=== PATIENT | female | born 1930 | race Caucasian/White ===

== ENCOUNTER 2017-04-27 17:02 | Inpatient (IN) | payer MEDICARE, BC ==
[~2017-04-27] VITALS: Ht 167.6 cm; Wt 68.4 kg
--- NOTE | ~2017-04-27 | HP ---
PATIENT: PAL CHURCH MEDICAL RECORD: [id number] ACCOUNT: [id number] LOCATION:[address] : [birth year] ADMISSION DATE: 04/27/17 HISTORY AND PHYSICAL EXAMINATION HISTORY OF PRESENT ILLNESS: The patient is a pleasant an 86-year-old white female who comes in complaining of lesions on her tongue. She noticed some looking in the mirror. They are asymptomatic. On exam, she has got multiple petechiae. She has also got some petechiae on her arms. She was seen about a week ago for suspected viral gastroenteritis. She does take an aspirin a day. CBC and INR are checked today. Her platelet count was 0. INR was okay. Leukocytes and H&H were in a normal range. The patient is admitted for severe thrombocytopenia and platelet transfusion, discussed with Dr. Bradshaw. PAST MEDICAL HISTORY: The patient has a history of atrial fibrillation, currently in sinus; hyperlipidemia; and vitamin D deficiency. 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 ALLERGIES OR INTOLERANCES: Include CEFTIN and PENICILLIN. HOME MEDICATIONS: Include pravastatin 10 mg a day, vitamin D 2000 international units a day, and 81 mg aspirin daily. FAMILY HISTORY: Significant for cancer, not specified. SOCIAL HISTORY: The patient is . She has one daughter that lives out of state. She has never smoked or drank. She recently retired working at a local [employer]. REVIEW OF SYSTEMS: She denies any fever. She denies any weight loss. No more nausea, vomiting. No chest pain or shortness of breath. No fatigue. No changes in weight. PHYSICAL EXAMINATION: HEENT: Head is normocephalic. Sclerae nonicteric. Mucous membranes are moist. There are some petechiae on the mouth and lips. HEART: Regular. LUNGS: Clear. ABDOMEN: Soft. Liver and spleen are nonpalpable. EXTREMITIES: Without edema. She has got some petechiae on her arms. IMPRESSION: 1. Severe thrombocytopenia. 2. Hyperlipidemia. 3. Aspirin therapy. PLAN: Admit, transfuse platelets. Consult Dr. Bradshaw. Start IV Solu-Medrol. Check labs. Bleeding precautions. See orders for plan. TRANSINT:[id number] Voice Confirmation ID: [id number] DOCUMENT ID: [id number] HISTORY AND PHYSICAL [id number] PAL CHURCH, EMILY SLATER at 0939 CC: [id number] DICTATION DATE: 04/27/17 1406 PROJECT CONTROL OFFICER: 04/27/17 1423 ADM IN [place] [id number] [place] [id number]
[2017-04-27 18:10] LABS: BASOPHILS 0.6 % (0-2); EOSINOPHILS 1.8 % (0-7); HEMATOCRIT 37.5 % (36.0-48.0); HEMOGLOBIN 12.5 g/dL (12-16); IMMATURE GRANULOCYTES 0.6 % (0-5); LYMPHOCYTES 16.1 % (15-50); MCH 31.3 pg (26.0-34.0); MCHC 33.3 g/dL (31.0-37.0); MONOCYTES 5.9 % (2-11); RBC 3.99 10x6/uL (4.00-5.40); RDW 12.6 % (11.5-14.5); WBC 5.4 10x3/uL (4.8-10.8)
[2017-04-27 18:28] LABS: APTT 28.4 SECONDS (22.8-39.4); INR 0.99 (0.85-1.17); PROTIME 12.7 SECONDS (11.6-15.0)
[2017-04-27 18:34] LABS: ANION GAP 12.6 mmol/L (8-16); BILIRUBIN - TOTAL 0.46 mg/dL (0.2-1.3); CALCIUM 9.2 mg/dL (8.5-10.1); CARBON DIOXIDE 28.8 mmol/L (21.0-32.0); CREATININE - SERUM 1.3 mg/dL (0.6-1.3); POTASSIUM - SERUM 4.4 mmol/L (3.5-5.1); PROTEIN - SERUM 7.5 g/dL (6.4-8.2)
[2017-04-27] MEDS ORDERED: BAYER CHEWABLE81 MG PO (18:35)
[2017-04-27] MEDS ORDERED: VITAMIN D31000 UNI2 PO (18:37)
[2017-04-27 19:10] LABS: PLATELET COUNT 3 10x3/uL (130-400)
[2017-04-27 19:12] LABS: PLATELET ESTIMATE DECREASED
[2017-04-27 19:17] LABS: ERYTHROCYTE SEDIMENTATION RATE 35 mm/hr (0-42)
[2017-04-27 19:21] VITALS: BP 155/57; BMI 23.3
[2017-04-27 21:11] VITALS: BP 179/67
[2017-04-28 04:27] VITALS: BP 151/59
[2017-04-28 08:36] VITALS: BP 137/65
[2017-04-28 09:10] LABS: BASOPHILS 0 % (0-2); EOSINOPHILS 0 % (0-7); HEMATOCRIT 35.7 % (36.0-48.0); HEMOGLOBIN 11.9 g/dL (12-16); MCH 31.2 pg (26.0-34.0); MCHC 33.3 g/dL (31.0-37.0); MCV 93.7 fL (80.0-100.0); MEAN PLATELET VOLUME 11.3 fL (7.4-10.4); MONOCYTES 0.1 % (2-11); NEUTROPHILS 93.9 % (40-80); RBC 3.81 10x6/uL (4.00-5.40); RDW 12.6 % (11.5-14.5)
[2017-04-28 09:14] LABS: PLATELET COUNT 81 10x3/uL (130-400); WBC 7.6 10x3/uL (4.8-10.8)
[2017-04-28 10:17] VITALS: BMI 23.1
[2017-04-28 12:48] VITALS: Ht 167.6 cm; Wt 68.4 kg
[2017-04-28 12:52] VITALS: BP 136/70
[2017-04-28 17:18] VITALS: BP 173/62
[2017-04-28 20:00] VITALS: BP 166/43
[2017-04-29 04:00] VITALS: BP 137/50
[2017-04-29 04:33] LABS: BASOPHILS 0 % (0-2); EOSINOPHILS 0 % (0-7); HEMATOCRIT 32.8 % (36.0-48.0); HEMOGLOBIN 10.7 g/dL (12-16); IMMATURE GRANULOCYTES 0.2 % (0-5); LYMPHOCYTES 4.1 % (15-50); MCH 30.9 pg (26.0-34.0); MCHC 32.6 g/dL (31.0-37.0); MCV 94.8 fL (80.0-100.0); MEAN PLATELET VOLUME 13.3 fL (7.4-10.4); MONOCYTES 2.3 % (2-11); NEUTROPHILS 93.4 % (40-80); RBC 3.46 10x6/uL (4.00-5.40); WBC 8.6 10x3/uL (4.8-10.8)
[2017-04-29 04:54] LABS: ALBUMIN 3.4 g/dL (3.4-5.0); ANION GAP 11.5 mmol/L (8-16); BILIRUBIN - TOTAL 0.5 mg/dL (0.2-1.3); CALCIUM 9.1 mg/dL (8.5-10.1); CARBON DIOXIDE 28.3 mmol/L (21.0-32.0); POTASSIUM - SERUM 3.8 mmol/L (3.5-5.1)
[2017-04-29 04:59] LABS: CREATININE - SERUM 0.9 mg/dL (0.6-1.3)
[2017-04-29 05:11] LABS: PLATELET COUNT 33 10x3/uL (130-400)
[2017-04-29 10:41] VITALS: BP 130/73
[2017-04-29 13:28] VITALS: BP 147/54
[2017-04-29 17:54] VITALS: BP 158/62
[2017-04-29 20:16] VITALS: BP 133/67
[2017-04-30 02:22] VITALS: BP 142/52
[2017-04-30 05:59] LABS: BASOPHILS 0 % (0-2); EOSINOPHILS 0 % (0-7); HEMOGLOBIN 9.9 g/dL (12-16); IMMATURE GRANULOCYTES 0.3 % (0-5); MCH 31.2 pg (26.0-34.0); MCV 94.6 fL (80.0-100.0); MEAN PLATELET VOLUME 13.6 fL (7.4-10.4); MONOCYTES 4.7 % (2-11); RBC 3.17 10x6/uL (4.00-5.40); RDW 13.2 % (11.5-14.5)
[2017-04-30 06:15] LABS: ANION GAP 10.7 mmol/L (8-16); BILIRUBIN - TOTAL 0.3 mg/dL (0.2-1.3); CALCIUM 8.2 mg/dL (8.5-10.1); CREATININE - SERUM 0.8 mg/dL (0.6-1.3); POTASSIUM - SERUM 3.7 mmol/L (3.5-5.1); PROTEIN - SERUM 6.6 g/dL (6.4-8.2)
[2017-04-30 06:19] LABS: PLATELET COUNT 31 10x3/uL (130-400); WBC 6.1 10x3/uL (4.8-10.8)
[2017-04-30 08:34] VITALS: BP 171/64
[2017-04-30 11:50] VITALS: BP 143/48
[2017-04-30 16:22] VITALS: BP 162/69
[2017-04-30 20:00] VITALS: BP 175/97
[2017-05-01] VITALS: BP 174/56
[2017-05-01 04:00] VITALS: BP 173/68
[2017-05-01 04:31] LABS: BASOPHILS 0 % (0-2); EOSINOPHILS 0 % (0-7); HEMATOCRIT 28.4 % (36.0-48.0); HEMOGLOBIN 9.3 g/dL (12-16); IMMATURE GRANULOCYTES 0.6 % (0-5); MCH 30.6 pg (26.0-34.0); MCHC 32.7 g/dL (31.0-37.0); MCV 93.4 fL (80.0-100.0); MEAN PLATELET VOLUME 11.5 fL (7.4-10.4); MONOCYTES 7.2 % (2-11); NEUTROPHILS 85.2 % (40-80); RBC 3.04 10x6/uL (4.00-5.40); RDW 13.3 % (11.5-14.5); WBC 5.4 10x3/uL (4.8-10.8)
[2017-05-01 04:45] LABS: PLATELET COUNT 87 10x3/uL (130-400)
[2017-05-01 05:52] LABS: ALBUMIN 2.8 g/dL (3.4-5.0); ALKALINE PHOSPHATASE 42 U/L (46-116); CALCIUM 7.8 mg/dL (8.5-10.1); CARBON DIOXIDE 26.3 mmol/L (21.0-32.0); CHLORIDE - SERUM 106 mmol/L (98-107); CREATININE - SERUM 0.7 mg/dL (0.6-1.3); GLUCOSE 136 mg/dL (74-106); POTASSIUM - SERUM 3.6 mmol/L (3.5-5.1); PROTEIN - SERUM 6.8 g/dL (6.4-8.2); SODIUM 139 mmol/L (136-145); eGFR NON AFRICAN AMERICAN 83 mL/min (90-120)
[2017-05-01 05:58] LABS: ALT (SGPT) 76 U/L (10-68); CALC OSMOLALITY 281 mosm/kg (275-300); UREA NITROGEN 19 mg/dL (7-18)
[2017-05-01 08:45] VITALS: BP 168/83
[2017-05-01 12:14] VITALS: BP 160/71
[2017-05-01 14:18] LABS: MAGNESIUM - SERUM 1.9 mg/dL (1.8-2.4); T4 THYROXIN - FREE 0.82 ng/dL (0.76-1.46); THYROID STIMULATING HORMONE 0.53 uIU/mL (0.36-3.74)
[2017-05-01 16:19] VITALS: BP 162/57
[2017-05-01 20:46] VITALS: BP 144/73; BP 198/75
[2017-05-02 05:52] LABS: BASOPHILS 0.2 % (0-2); EOSINOPHILS 0 % (0-7); HEMATOCRIT 31.8 % (36.0-48.0); HEMOGLOBIN 10.4 g/dL (12-16); IMMATURE GRANULOCYTES 1.7 % (0-5); LYMPHOCYTES 10.9 % (15-50); MCH 30.8 pg (26.0-34.0); MCHC 32.7 g/dL (31.0-37.0); MCV 94.1 fL (80.0-100.0); MEAN PLATELET VOLUME 11.4 fL (7.4-10.4); MONOCYTES 9.9 % (2-11); NEUTROPHILS 77.3 % (40-80); PLATELET COUNT 153 10x3/uL (130-400); RBC 3.38 10x6/uL (4.00-5.40); RDW 13.5 % (11.5-14.5); WBC 5.2 10x3/uL (4.8-10.8)
[2017-05-02 06:21] LABS: ALBUMIN 3.1 g/dL (3.4-5.0); BILIRUBIN - TOTAL 0.45 mg/dL (0.2-1.3); CALCIUM 8.5 mg/dL (8.5-10.1); CARBON DIOXIDE 29.5 mmol/L (21.0-32.0); CREATININE - SERUM 0.8 mg/dL (0.6-1.3); POTASSIUM - SERUM 3.5 mmol/L (3.5-5.1); PROTEIN - SERUM 8.2 g/dL (6.4-8.2)
[2017-05-02 06:57] VITALS: BP 194/77
[2017-05-02 10:27] VITALS: BP 127/79
[2017-05-02 12:45] VITALS: BP 130/70
[2017-05-02 16:13] LABS: APPEARANCE CLEAR (CLEAR); BILIRUBIN NEGATIVE (NEGATIVE); COLOR YELLOW (YELLOW); GLUCOSE NEGATIVE (NEGATIVE); KETONE NEGATIVE (NEGATIVE); NITRITE NEGATIVE (NEGATIVE); PROTEIN NEGATIVE (NEGATIVE); UROBILINOGEN NORMAL (NORMAL)
[2017-05-02 16:15] LABS: BACTERIA FEW /hpf (NONE SEEN); EPITHELIAL CELLS 0-5 /hpf (0-5); WHITE CELLS - URINE 0-5 /hpf (0-5)
[2017-05-02 16:25] VITALS: BP 166/64
[2017-05-02 20:49] VITALS: BP 169/57
[2017-05-03 05:21] LABS: BASOPHILS 0 % (0-2); EOSINOPHILS 0.7 % (0-7); HEMATOCRIT 30.2 % (36.0-48.0); IMMATURE GRANULOCYTES 1.3 % (0-5); LYMPHOCYTES 22.8 % (15-50); MCHC 33.1 g/dL (31.0-37.0); MCV 93.5 fL (80.0-100.0); MEAN PLATELET VOLUME 10.4 fL (7.4-10.4); MONOCYTES 7.8 % (2-11); NEUTROPHILS 67.4 % (40-80); PLATELET COUNT 132 10x3/uL (130-400); RBC 3.23 10x6/uL (4.00-5.40); RDW 13.3 % (11.5-14.5); WBC 4.6 10x3/uL (4.8-10.8)
[2017-05-03 05:34] LABS: ALBUMIN 2.6 g/dL (3.4-5.0); ANION GAP 5.2 mmol/L (8-16); BILIRUBIN - TOTAL 0.6 mg/dL (0.2-1.3); CALCIUM 7.6 mg/dL (8.5-10.1); CARBON DIOXIDE 32.2 mmol/L (21.0-32.0); CREATININE - SERUM 0.9 mg/dL (0.6-1.3); POTASSIUM - SERUM 3.4 mmol/L (3.5-5.1); PROTEIN - SERUM 6.6 g/dL (6.4-8.2)
[2017-05-03 06:33] VITALS: BP 132/86
[2017-05-03 09:46] VITALS: BP 104/58
[2017-05-03 12:50] VITALS: BP 118/63
[2017-05-03 16:09] VITALS: BP 117/58
[2017-05-03 20:30] VITALS: BP 141/55
[2017-05-04 00:30] VITALS: BP 146/50
[2017-05-04 04:30] VITALS: BP 166/55
[2017-05-04 05:03] LABS: BASOPHILS 0 % (0-2); EOSINOPHILS 1.4 % (0-7); HEMATOCRIT 33.8 % (36.0-48.0); HEMOGLOBIN 11.4 g/dL (12-16); IMMATURE GRANULOCYTES 1.4 % (0-5); LYMPHOCYTES 18.5 % (15-50); MCH 31.1 pg (26.0-34.0); MCHC 33.7 g/dL (31.0-37.0); MCV 92.3 fL (80.0-100.0); MEAN PLATELET VOLUME 10.4 fL (7.4-10.4); MONOCYTES 7.7 % (2-11); PLATELET COUNT 134 10x3/uL (130-400); RBC 3.66 10x6/uL (4.00-5.40); RDW 13.1 % (11.5-14.5); WBC 4.2 10x3/uL (4.8-10.8)
[2017-05-04 05:17] LABS: ANION GAP 7.9 mmol/L (8-16); CALCIUM 8.4 mg/dL (8.5-10.1); CARBON DIOXIDE 30.7 mmol/L (21.0-32.0); CREATININE - SERUM 0.8 mg/dL (0.6-1.3); POTASSIUM - SERUM 3.6 mmol/L (3.5-5.1)
[2017-05-04 08:32] VITALS: BP 129/87
[2017-05-04 11:46] VITALS: BP 177/65
[2017-05-04 15:26] VITALS: BP 133/64
[2017-05-04] MEDS ORDERED: PREDNISONE20 MG PO (15:54)
[2017-05-04] MEDS ORDERED: BETAPACE 80 MG80 MG PO (15:55)
== END 2017-05-04 17:50 | disposition home or self-care (01) | DRG 813 ==
LOC: D.M2 17:02
PROVIDERS: Family Medicine; Internal Medicine Hematology & Oncology; Internal Medicine Nephrology
DX: D69.3 Immune thrombocytopenic purpura (principal); G93.41 Metabolic encephalopathy; N17.9 Acute kidney failure, unspecified; D64.9 Anemia, unspecified; M35.9 Systemic involvement of connective tissue, unspecified; I10 Essential (primary) hypertension; I48.0 Paroxysmal atrial fibrillation; I07.1 Rheumatic tricuspid insufficiency; E78.5 Hyperlipidemia, unspecified; E55.9 Vitamin D deficiency, unspecified